=== PATIENT | female | born 1960 | race Caucasian/White ===

== ENCOUNTER 2017-11-27 12:21 | Emergency (ER) | payer SELFPAY ==
[~2017-11-27] VITALS: Ht 170.2 cm; Wt 60.0 kg
[~2017-11-27 12:21] MED LIST: LORA-392 PO; Z.0.NO CURRENT MEDS
[2017-11-27 12:23] VITALS: BP 222/175; PULSE 86; RESP 14; TEMP 98.2; O2SAT 100
--- NOTE | 2017-11-27 12:58 | PD ---
HPI Chief Complaint: Musculoskeletal Complaint Time Seen by Provider: 12:58 Travel History International Travel<30 days: No Contact w/Intl Traveler<30days: No Traveled to known affect area: No History of Present Illness HPI 57-year-old female no medical history, presents to emergency department for evaluation of a pain between her shoulder blades. Patient was lifting a heavy door over the weekend and she began having this pain in her mid back, between her shoulder blades. It is not reproducible. Patient attributed this to a rib injury that occurred 4 years ago. She has no new injury. Denies any shortness of breath, nausea, vomiting. Patient has quite elevated blood pressure in triage and states she has no history of this. She denies any other symptoms at this time. [facility] Past Medical History Medical History: Denies Significant Hx Menopausal: Yes Social History Alcohol Use: Yes (2 [employer] DAY) Tobacco Use: Yes (2 PPD) Substance Use: No Allergies-Medications (Allergen,Severity, Reaction): Coded Allergies: No Known Allergies (Verified Allergy, Severe, 06/03/08) sertraline (Unverified Allergy, Severe, Twitching, 05/28/17) Reported Meds & Prescriptions Reported Meds & Active Scripts Active Naprosyn (Naproxen) 500 Mg Tab 500 Mg PO BID PRN Robaxin (Methocarbamol) 500 Mg Tab 500 Mg PO TID Ativan (Lorazepam) 0.5 Mg Tab 1-2 Tab PO Q6HPRN Reported No Current Meds (Miscellaneous Medication) Misc Review of Systems Except as stated in HPI: all other systems reviewed are Neg Physical Exam Narrative GENERAL: Well-nourished female patient, sitting in bed in no acute distress. SKIN: Focused skin assessment warm/dry. HEAD: Atraumatic. Normocephalic. EYES: Pupils equal and round. No scleral icterus. No injection or drainage. ENT: No nasal bleeding or discharge. Mucous membranes pink and moist. NECK: Trachea midline. No JVD. CARDIOVASCULAR: Regular rate and rhythm. No murmur appreciated. RESPIRATORY: No accessory muscle use. Diminished. Breath sounds equal bilaterally. GASTROINTESTINAL: Abdomen soft, non-tender, nondistended. Hepatic and splenic margins not palpable. MUSCULOSKELETAL: No obvious deformities. No clubbing. No cyanosis. No edema. No tenderness elicited palpation over the thoracic spine or the paraspinous musculature. No pain elicited with movement. NEUROLOGICAL: Awake and alert. No obvious cranial nerve deficits. Motor grossly within normal limits. Normal speech. PSYCHIATRIC: Appropriate mood and affect; insight and judgment normal. Data Data Last Documented VS Vital Signs Date Time Temp Pulse Resp B/P (MAP) Pulse Ox O2 Delivery O2 Flow Rate FiO2 11/27/17 15:03 78 16 191/84 (119) 99 Room Air 11/27/17 12:23 98.2 Orders Orders Chest, Pa & Lat (11/27/17 ) Hydralazine Inj (Apresoline Inj) (11/27/17 13:15) Iv Access Insert/Monitor (11/27/17 13:07) Complete Blood Count With Diff (11/27/17 13:07) Basic Metabolic Panel (Bmp) (11/27/17 13:07) Electrocardiogram (11/27/17 13:07) Ecg Monitoring (11/27/17 13:07) Bilateral Bp Monitoring (11/27/17 13:07) Oximetry (11/27/17 13:07) Oxygen Administration (11/27/17 13:07) Sodium Chloride 0.9% Flush (Ns Flush) (11/27/17 13:15) Ckmb (Isoenzyme) Profile (11/27/17 13:11) Troponin I (11/27/17 13:11) Cta Thor Abd Aorta W Iv C W3d (11/27/17 ) Hydralazine Inj (Apresoline Inj) (11/27/17 14:00) Morphine Inj (Morphine Inj) (11/27/17 14:00) Ondansetron Inj (Zofran Inj) (11/27/17 14:00) Iohexol 350 Inj (Omnipaque 350 Inj) (11/27/17 14:35) Ed Discharge Order (11/27/17 15:25) Labs Laboratory Tests Test 11/27/17 13:20 White Blood Count 8.9 TH/MM3 Red Blood Count 4.71 MIL/MM3 Hemoglobin 15.2 GM/DL Hematocrit 44.3 % Mean Corpuscular Volume 94.1 FL Mean Corpuscular Hemoglobin 32.2 PG Mean Corpuscular Hemoglobin Concent 34.2 % Red Cell Distribution Width 13.6 % Platelet Count 295 TH/MM3 Mean Platelet Volume 8.3 FL Neutrophils (%) (Auto) 65.9 % Lymphocytes (%) (Auto) 25.3 % Monocytes (%) (Auto) 5.9 % Eosinophils (%) (Auto) 1.8 % Basophils (%) (Auto) 1.1 % Neutrophils # (Auto) 5.9 TH/MM3 Lymphocytes # (Auto) 2.3 TH/MM3 Monocytes # (Auto) 0.5 TH/MM3 Eosinophils # (Auto) 0.2 TH/MM3 Basophils # (Auto) 0.1 TH/MM3 CBC Comment AUTO DIFF Differential Comment AUTO DIFF CONFIRMED Blood Urea Nitrogen 11 MG/DL Creatinine 0.82 MG/DL Random Glucose 107 MG/DL Calcium Level 8.4 MG/DL Sodium Level 135 MEQ/L Potassium Level 4.0 MEQ/L Chloride Level 103 MEQ/L Carbon Dioxide Level 26.0 MEQ/L Anion Gap 6 MEQ/L Estimat Glomerular Filtration Rate 72 ML/MIN Total Creatine Kinase 99 U/L Troponin I LESS THAN 0.02 NG/ML MDM Medical Decision Making Medical Screen Exam Complete: Yes Emergency Medical Condition: Yes Medical Record Reviewed: Yes Differential Diagnosis Musculoskeletal pain versus pleuritic pain versus dissection versus ACS Narrative Course 57-year-old female presents to emergency department for evaluation of a back pain between her shoulder blades that is not reproducible. Patient has significant elevated blood pressure here in the emergency department. After hydralazine, this briefly decreases but then increases again. Patient is treated for pain. Laboratory Tests Test 11/27/17 13:20 White Blood Count 8.9 TH/MM3 Red Blood Count 4.71 MIL/MM3 Hemoglobin 15.2 GM/DL Hematocrit 44.3 % Mean Corpuscular Volume 94.1 FL Mean Corpuscular Hemoglobin 32.2 PG Mean Corpuscular Hemoglobin Concent 34.2 % Red Cell Distribution Width 13.6 % Platelet Count 295 TH/MM3 Mean Platelet Volume 8.3 FL Neutrophils (%) (Auto) 65.9 % Lymphocytes (%) (Auto) 25.3 % Monocytes (%) (Auto) 5.9 % Eosinophils (%) (Auto) 1.8 % Basophils (%) (Auto) 1.1 % Neutrophils # (Auto) 5.9 TH/MM3 Lymphocytes # (Auto) 2.3 TH/MM3 Monocytes # (Auto) 0.5 TH/MM3 Eosinophils # (Auto) 0.2 TH/MM3 Basophils # (Auto) 0.1 TH/MM3 CBC Comment AUTO DIFF Differential Comment AUTO DIFF CONFIRMED Blood Urea Nitrogen 11 MG/DL Creatinine 0.82 MG/DL Random Glucose 107 MG/DL Calcium Level 8.4 MG/DL Sodium Level 135 MEQ/L Potassium Level 4.0 MEQ/L Chloride Level 103 MEQ/L Carbon Dioxide Level 26.0 MEQ/L Anion Gap 6 MEQ/L Estimat Glomerular Filtration Rate 72 ML/MIN Total Creatine Kinase 99 U/L Troponin I LESS THAN 0.02 NG/ML Lab work is reviewed with my attending physician who has also assess the patient. The patient continues to have this pain. Most concerning that we need to be ruled out emergently is aortic dissection. We'll move forward with CT imaging for evaluation of this. Plan is discussed with the patient and she is in agreement with this plan of care. Last Impressions Chest X-Ray 11/27/17 0000 Signed Impressions: Service Date/Time: Monday, November 27, 2017 13:05 - CONCLUSION: 1. No acute cardiopulmonary process. 2. There appear to be mild biapical emphysematous changes. Lungs are otherwise clear. Micheal Sultana MD Aorta CTA 11/27/17 0000 Signed Impressions: Service Date/Time: Monday, November 27, 2017 14:30 - CONCLUSION: Negative for dissection. Moderate atherosclerotic vascular disease. Moderate emphysematous changes pelvis and cardiomegaly. Dennis Maldonado MD FACR Findings are reviewed and discussed with the patient. She'll be discharged home with pain control. She is encouraged to follow-up with a primary care provider and return immediately with any acute worsening of symptoms. Diagnosis Primary Impression: Back pain Qualified Codes: M54.6 - Pain in thoracic spine Additional Impression: Hypertension Qualified Codes: I10 - Essential (primary) hypertension Referrals: [facility] Primary Care Physician Patient Instructions: Back Pain (ED), General Instructions Departure Forms: Tests/Procedures, Work Release Enter return to work date: Nov 29, 2017 Additional Instructions: Ice and/or warm moist heat may help to alleviate symptoms It is important that you follow-up with a primary care provider and have your high blood pressure addressed. Return immediately with any acute worsening of symptoms Med/Other Pt SpecificInfo: Prescription(s) given Scripts Naproxen (Naprosyn) 500 Mg Tab 500 MG PO BID Y for PAIN SCALE 1 TO 10, #30 TAB 0 Refills Prov: Anabel Chan 11/27/17 Methocarbamol (Robaxin) 500 Mg Tab 500 MG PO TID for Muscle Spasm, #20 TAB 0 Refills Prov: Anabel Chan 11/27/17 Disposition: 01 DISCHARGE HOME Condition: Stable Anabel Chan Nov 27, 2017 12:58
[2017-11-27 13:14] VITALS: O2SAT 98
[2017-11-27] MEDS ORDERED: SODIUM CHLORIDE 0.9% FLUSH 10 ML FLUSH IVF PRN (13:15)
[2017-11-27] MEDS ORDERED: hydrALAZINE HCL 20 MG/ML VIAL IV PUSH ONE ×2 (13:15→14:00)
[2017-11-27 13:18] VITALS: BP 245/118; PULSE 78; RESP 16; O2SAT 100
--- NOTE | 2017-11-27 13:21 | PD ---
Physical Exam Date Seen by Provider: Nov 27, 2017 Narrative This patient presents with a chief complaint of "rib pain." She is complaining with bilateral upper back pain. She is not having any difficulty breathing. On my exam, her lungs are clear with good air movement throughout. She is able to speak in complete sentences without difficulty. Data Data Last Documented VS Vital Signs Date Time Temp Pulse Resp B/P (MAP) Pulse Ox O2 Delivery O2 Flow Rate FiO2 11/27/17 13:18 78 16 245/118 (160) 100 Room Air 11/27/17 12:23 98.2 Orders Orders Chest, Pa & Lat (11/27/17 ) Hydralazine Inj (Apresoline Inj) (11/27/17 13:15) Iv Access Insert/Monitor (11/27/17 13:07) Complete Blood Count With Diff (11/27/17 13:07) Basic Metabolic Panel (Bmp) (11/27/17 13:07) Electrocardiogram (11/27/17 13:07) Ecg Monitoring (11/27/17 13:07) Bilateral Bp Monitoring (11/27/17 13:07) Oximetry (11/27/17 13:07) Oxygen Administration (11/27/17 13:07) Sodium Chloride 0.9% Flush (Ns Flush) (11/27/17 13:15) Ckmb (Isoenzyme) Profile (11/27/17 13:11) Troponin I (11/27/17 13:11) MDM Supervised Visit with OLI: Yes Narrative Course I, Dr. Newman, have reviewed the advance practice practitioner's documentation and am in agreement, met with the patient face to face, made the diagnosis, and the medical decision making was done by me. *My assessment and Findings: This patient does not appear acutely ill. Please see Anabel Chan NP's note for results of laboratory and radiographic evaluation, ED course, final diagnosis and disposition Isabel Newman MD Nov 27, 2017 13:21
[2017-11-27 13:37] LABS: AUTOMATED NEUTROPHIL # 5.9 TH/MM3 (1.8-7.7); BASOPHIL # 0.1 TH/MM3 (0-0.2); BASOPHIL % 1.1 % (0.0-2.0); EOSINOPHIL # 0.2 TH/MM3 (0-0.4); EOSINOPHIL % 1.8 % (0.0-4.0); HEMATOCRIT 44.3 % (35.0-46.0); HEMOGLOBIN 15.2 GM/DL (11.6-15.3); LYMPH % 25.3 % (9.0-44.0); LYMPHOCYTE # 2.3 TH/MM3 (1.0-4.8); MEAN CELL VOLUME 94.1 FL (80.0-100.0); MEAN CORPUSCULAR HEMOGLOBIN 32.2 PG (27.0-34.0); MEAN CORPUSCULAR HGB CONC 34.2 % (32.0-36.0); MEAN PLATELET VOLUME 8.3 FL (7.0-11.0); MONO % 5.9 % (0.0-8.0); MONOCYTE # 0.5 TH/MM3 (0-0.9); NEUT % 65.9 % (16.0-70.0); PLATELET COUNT 295 TH/MM3 (150-450); RED BLOOD COUNT 4.71 MIL/MM3 (4.00-5.30); RED CELL DISTRIBUTION WIDTH 13.6 % (11.6-17.2); WHITE BLOOD COUNT 8.9 TH/MM3 (4.0-11.0)
--- NOTE | 2017-11-27 13:43 | RADRPT ---
EXAM DATE/TIME: 11/27/2017 13:05 [facility] COMPARISON: No previous studies available for comparison. INDICATIONS : Posterior rib pain, hurt carrying a door. MEDICAL HISTORY : None. SURGICAL HISTORY : None. ENCOUNTER: Initial ACUITY: 3 days PAIN SCORE: 0/10 LOCATION: Bilateral chest FINDINGS: PA and lateral views of the chest demonstrate the lungs to be symmetrically aerated with plain film f indings of biapical emphysematous changes. No confluent infiltrate. No effusions. Heart size is lion l. Degenerative spurring of the dorsal spine. Osseous structures are otherwise intact. CONCLUSION: 1. No acute cardiopulmonary process. 2. There appear to be mild biapical emphysematous changes. Lungs are otherwise clear. Micheal Sultana MD on November 27, 2017 at 13:39 Board Certified Radiologist. This report was verified electronically.
[2017-11-27 13:52] LABS: CALCIUM 8.4 MG/DL (8.5-10.1); CREATININE 0.82 MG/DL (0.50-1.00); TROPONIN I LESS THAN 0.02 NG/ML (0.02-0.05)
[2017-11-27 13:56] VITALS: BP_SYST 217; BP_SYST 218; BP_DIAS 90; BP_DIAS 96; PULSE 81
[2017-11-27] MEDS ORDERED: ONDANSETRON HCL 4 MG/2 ML VIAL IV PUSH ONE (14:00)
[2017-11-27] MEDS ORDERED: MORPHINE SULFATE 2 MG/ML INJ IV PUSH ONE (14:00)
[2017-11-27] MEDS ORDERED: IOHEXOL 350 MG/ML 10 ML VIAL (for RAD DIAG) IVCONTRAST ONE (14:35)
[2017-11-27 15:03] VITALS: BP 191/84; PULSE 78; RESP 16; O2SAT 99
--- NOTE | 2017-11-27 15:17 | RADRPT ---
EXAM DATE/TIME: 11/27/2017 14:30 [facility] COMPARISON: No previous studies available for comparison. INDICATIONS : Back pain; evaluate for aortic dissection. IV CONTRAST: 98 cc Omnipaque 350 (iohexol) IV RADIATION DOSE: 14.42 CTDIvol (mGy) MEDICAL HISTORY : Hypertension. SURGICAL HISTORY : None. ENCOUNTER: Initial ACUITY: 1 day PAIN SCALE: 8/10 LOCATION: Bilateral upper back. TECHNIQUE: Volumetric scanning was performed using a multi-row detector CT scanner. The data was post processed with a variety of visualization algorithms including full volume maximum intensity projection, multi -planar sliding thin slab reformation, curved planar reformation, and surface rendering techniques. Using automated exposure control and adjustment of the mA and/or kV according to patient size, radiat ion dose was kept as low as reasonably achievable to obtain optimal diagnostic quality images. DICOM format image data is available electronically for review and comparison. FINDINGS: LUNGS: Mild interstitial changes are seen in both lungs are moderately emphysematous changes. MEDIASTINUM: No abnormally enlarged lymph nodes by CT criteria. No axillary or hilar abnormalities are identified. Mild cardiomegaly. ABDOMEN: The liver and spleen are free of focal defects. The gallbladder and pancreas demonstrate no abnormali ty. The adrenal glands are normal. The kidneys demonstrate no evidence of solid renal mass or hydrone phrosis. No free fluid or abdominal masses are identified. No para-aortic adenopathy is seen. PELVIS: No evidence of free fluid or pelvic mass. No abnormally enlarged inguinal or retroperitoneal lymph no devin are present. The bladder is unremarkable. THORACIC AORTA: The thoracic aortic root is normal with normal branching of the great vessels. There is no evidence of aneurysm or dissection. ABDOMINAL AORTA: The aorta is normal in caliber without aneurysm or dissection. The renal arteries are patent bilater ally. The proximal celiac and superior mesenteric arteries are patent and normal in diameter. Mode rate atherosclerotic disease is present at the nondilated abdominal aorta. PELVIC VESSELS: Atherosclerotic disease is present in both internal and external iliac arteries. Atherosclerotic dis ease is present in both common femoral arteries. CONCLUSION: Negative for dissection. Moderate atherosclerotic vascular disease. Moderate emphysematous changes pelvis and cardiomegaly. Dennis Maldonado MD FACR on November 27, 2017 at 15:12 Board Certified Radiologist. This report was verified electronically.
[2017-11-27] MEDS ORDERED: ROBA500T PO (15:28)
[2017-11-27] MEDS ORDERED: NAPR500 PO (15:28)
[2017-11-27 15:36] VITALS: BP 190/84
--- NOTE | 2017-11-28 14:31 | EKG ---
Date Performed: 11/27/2017 Time Performed: 13:32:38 PTAGE: 57 years EKG: Sinus rhythm WITH SINUS ARRHYTHMIA NORMAL ECG NO PREVIOUS TRACING DOCTOR: Joon Russell Interpretating Date/Time 11/28/2017 14:28:42
== END 2017-11-27 15:54 | disposition home or self-care (01) ==
LOC: NEPE 12:21
DX: R07.81 Pleurodynia (principal); M54.9 Dorsalgia, unspecified; I49.9 Cardiac arrhythmia, unspecified; I51.7 Cardiomegaly; I10 Essential (primary) hypertension; F17.200 Nicotine dependence, unspecified, uncomplicated; Z79.899 Other long term (current) drug therapy; Z88.8 Allergy status to other drugs, medicaments and biological substances
CPT/HCPCS: 71046; 71275; 74174; 80048; 82550; 84484; 85025; 93005; 96374; 96375; 99285; J0360; J2270; J2405; Q9967